=== PATIENT | female | born 1990 | race American Indian/Alaskan Native ===

== ENCOUNTER 2018-10-14 23:24 | Outpatient (CLI) | payer MEDICAID ==
[2018-10-15 00:27] VITALS: BP 111/59
[2018-10-15 01:31] LABS: Bilirubin,Urine NEG (Negative); Blood,Urine NEG (Negative); Color,Urine Yellow (Yellow); Mucus,Urine 1+ /HPF; Protein,Urine <15 mg/dL mg/dL (Negative); RBC,Urine < 1.0 /HPF (0.0-6.0)
== END 2018-10-15 03:23 | disposition home or self-care (01) ==
LOC: TRG 23:24
PROVIDERS: ATTEND Obstetrics & Gynecology
DX: O26.893 Other specified pregnancy related conditions, third trimester (principal); R10.9 Unspecified abdominal pain; M54.9 Dorsalgia, unspecified; Z3A.33 33 weeks gestation of pregnancy
CPT/HCPCS: 59025; 81001

== ENCOUNTER 2018-12-04 03:42 | Inpatient (IN) | payer MEDICAID ==
[2018-12-04] MEDS ORDERED: ZOFRAN IV PRN ×2 (04:18→09:00)
[2018-12-04] MEDS ORDERED: SUBLIMAZE IV PRN (04:18)
[2018-12-04] MEDS ORDERED: MINERAL OIL PO PRN (04:18)
[2018-12-04] MEDS ORDERED: AMPICILLIN/NS 2 GM/100 ML 2 GM/100 ML BAG IV ONE (04:18)
[2018-12-04] MEDS ORDERED: BRETHINE IVP PRN (04:18)
[2018-12-04] MEDS ORDERED: BRETHINE SUB-Q PRN (04:18)
[2018-12-04] MEDS ORDERED: XYLOCAINE 2% INFILTRATI ONE (04:18)
[2018-12-04] MEDS ORDERED: PITOCin/NS 30 UNIT/500ML 30 UNITS/500 ML BAG IV SCH ×2 (05:00→07:00)
[2018-12-04] MEDS ORDERED: PITOCin/NS 20 UNIT/1000ML DRIP 20 UNITS/1,000 ML BAG IV SCH ×3 (05:00→11:00)
[2018-12-04] MEDS ORDERED: LACTATED RINGERS 1,000 ML IV SCH ×2 (05:00→09:00)
[2018-12-04 05:06] LABS: Hematocrit 33.8 % (30.3-42.9); Hemoglobin 11.5 gm/dl (10.1-14.3); Mean Corpuscular HGB Conc 34 % (30-34); Mean Corpuscular Volume 94 fl (79-97); Platelet Count 208 K/mm3 (140-440); Red Blood Count 3.61 M/mm3 (3.65-5.03); Red Cell Distribution Width 14.4 % (13.2-15.2)
--- NOTE | 2018-12-04 07:56 | Anesthesia Consultation ---
Anesthesia Consult and Med Hx - Airway Anesthetic Teeth Evaluation: Good ROM Head & Neck: Adequate Mental/Hyoid Distance: Adequate Mallampati Class: Class I Intubation Access Assessment: Good - Pulmonary Exam CTA: Yes - Cardiac Exam Cardiac Exam: RRR - Pre-Operative Health Status ASA Pre-Surgery Classification: ASA2 Proposed Anesthetic Plan: Epidural - Pulmonary Hx Smoking: No Hx Asthma: No Hx Respiratory Symptoms: No SOB: No COPD: No Home Oxygen Therapy: No Hx Pneumonia: No - Cardiovascular System Hx Hypertension: No Hx Heart Attack/AMI: No Hx Pacemaker: No Hx Internal Defibrillator: No - Central Nervous System Hx Seizures: Yes (on meds last took keppra on 12/03/18) Hx Psychiatric Problems: No - Endocrine Hx Renal Disease: No Hx End Stage Renal Disease: No Hx Liver Disease: No Hx Hypothyroidism: No Hx Hyperthyroidism: No - Hematic Hx Anemia: No Hx Sickle Cell Disease: No - Other Systems Hx Alcohol Use: No
--- NOTE | 2018-12-04 07:57 | Anesthesia Day of Surgery ---
Anesthesia Day of Surgery - Day of Surgery Patient Examined: Yes Patient H&P Reviewed: No Patient is NPO: Yes Beta Blockers: No Cardiac Clearance: No Pulmonary Clearance: No Edgardo's Test: N/A
[2018-12-04] MEDS ORDERED: XYLOCAINE 2%/ EPI 1:200,000 INFILTRATI ONE (08:01)
[2018-12-04] MEDS ORDERED: AMPICILLIN/NS 1 GM/50 ML 1 GM/50 ML BAG IV SCH (08:22)
[2018-12-04] MEDS ORDERED: NARCAN 2 MG/2 ML IV PRN (08:30)
[2018-12-04] MEDS ORDERED: SENSORCAINE/DEXTR 0.75-8.25% INFILTRATI ONE (08:48)
[2018-12-04] MEDS ORDERED: ASTRAMORPH PF 10MG/10ML ONE (08:48)
[2018-12-04] MEDS ORDERED: BICITRA PO NR (09:00)
[2018-12-04] MEDS ORDERED: REGLAN IV NR (09:00)
[2018-12-04] MEDS ORDERED: fentaNYL-BUPIV 2 MCG/ML-0.125% 200 MCG/100 ML BAG EPIDURAL SCH (09:00)
[2018-12-04] MEDS ORDERED: SODIUM CHLORIDE FLUSH SYRINGE 10 ML IV PRN (09:00)
[2018-12-04] MEDS ORDERED: NARCAN 0.4 MG/1 ML IV PRN ×2 (09:00→10:25)
[2018-12-04] MEDS ORDERED: PHENERGAN PO PRN (09:00)
[2018-12-04] MEDS ORDERED: ANCEF/STERILE WATER 2 GM/20 ML 2 GM/20 ML SYRINGE IV NR (09:00)
[2018-12-04] MEDS ORDERED: PEPCID IV NR (09:00)
[2018-12-04] MEDS ORDERED: PHENERGAN PR PRN (09:00)
[2018-12-04] MEDS ORDERED: NACL 0.9% IR ONE (09:20)
[2018-12-04] MEDS ORDERED: WATER FOR IRRIG STERILE IR ONE (09:20)
[2018-12-04] MEDS ORDERED: KETALAR ONE (09:30)
[2018-12-04] MEDS ORDERED: DILAUDID ONE (09:40)
[2018-12-04] MEDS ORDERED: METHERGINE IM ONE (09:41)
[2018-12-04] MEDS ORDERED: VERSED ONE (10:07)
[2018-12-04] MEDS ORDERED: TORADOL ONE (10:09)
--- NOTE | 2018-12-04 10:21 | History and Physical Report ---
History of Present Illness Date of examination: 12/04/18 Date of admission: 12/04/18 04:26 Chief complaint: contractions History of present illness: this is a 28- yo EDC 11/24/18 here for contractions. She stated that she has been having contractions all night. She is a patient of [place] with limited care starting at 15 weeks. 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 She reports outbreak two days ago and has lesions per patient. She has a ahx of Seizure d/o with shunt. She has had IUGR 9%and been under care of [facility]. She also os GBS positive. 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 denies: smoking, alcohol abuse, prescription drug abuse - Obstetrical History Expected Date of Delivery: 11/24/18 Actual Gestation: 41 Week(s) 3 Day(s) : 5 Para: 4 Hx # Term Pregnancies: 4 Number of Pregnancies: 0 Spontaneous Abortions: 0 Induced : 0 Number of Living Children: 4 Medications and Allergies Allergies Allergy/AdvReac Type Severity Reaction Status Date / Time seafood Allergy Intermediate Swelling Uncoded 06/24/13 23:39 Home Medications Medication Instructions Recorded Confirmed Last Taken Type Valacyclovir HCl [Valtrex] 1,000 mg PO QDAY 12/04/18 12/04/18 12/03/18 History levETIRAcetam [Keppra] 500 mg PO BID 12/04/18 12/04/18 12/03/18 History Active Meds: Active Medications Citric Acid/Sodium Citrate (Bicitra) 30 ml PO ONCE NR Stop: 12/04/18 18:00 Last Admin: 12/04/18 08:52 Dose: 30 ml Documented by: Ephedrine Sulfate (Ephedrine Sulfate) 10 mg IV Q2M PRN PRN Reason: Hypotension Famotidine (Pepcid) 20 mg IV ONCE NR Stop: 12/04/18 18:00 Last Admin: 12/04/18 08:52 Dose: 20 mg Documented by: Fentanyl (Sublimaze) 100 mcg IV Q2H PRN PRN Reason: Labor Pain Last Admin: 12/04/18 05:48 Dose: 100 mcg Documented by: Ampicillin Sodium (Ampicillin/Ns 1 Gm/50 Ml) 1 gm in 50 mls @ 100 mls/hr IV Q4HR MAYRA; Protocol Last Admin: 12/04/18 08:26 Dose: 100 mls/hr Documented by: Lactated Ringer's (Lactated Ringers) 1,000 mls @ 125 mls/hr IV DIRECT MAYRA Last Admin: 12/04/18 05:45 Dose: 125 mls/hr Documented by: Oxytocin/Sodium Chloride (Pitocin/Ns 30 Unit/500ml) 30 units in 500 mls @ 4 mls/hr IV TITR MAYRA; Protocol Last Admin: 12/04/18 06:52 Dose: 4 milliunits/min, 4 mls/hr Documented by: Fentanyl/Bupivacaine/Sodium Chlor (Fentanyl-Bupiv 2 Mcg/Ml-0.125%) 200 mcg in 100 mls @ 12 mls/hr EPIDURAL TITR MAYRA; Protocol Cefazolin Sodium (Ancef/Sterile Water 2 Gm/20 Ml) 2 gm in 20 mls @ 80 mls/hr IV PREOP NR; Protocol Stop: 12/04/18 18:00 Lactated Ringer's (Lactated Ringers) 1,000 mls @ 2,250 mls/hr IV PREOP MAYRA Stop: 12/05/18 09:27 Oxytocin/Sodium Chloride (Pitocin/Ns 20 Unit/1000ml Drip) 20 units in 1,000 mls @ 0 mls/hr IV TITR MAYRA Metoclopramide HCl (Reglan) 10 mg IV ONCE NR Stop: 12/04/18 18:00 Last Admin: 12/04/18 08:59 Dose: 10 mg Documented by: Mineral Oil (Mineral Oil) 30 ml PO QHS PRN PRN Reason: Constipation Naloxone HCl (Narcan 2 Mg/2 Ml) 0.2 mg IV Q5M PRN PRN Reason: Respiratory sedation Naloxone HCl (Narcan 0.4 Mg/1 Ml) 0.2 mg IV Q2MIN PRN PRN Reason: Res Rate </= 8 or 02 SAT < 92% Ondansetron HCl (Zofran) 4 mg IV Q8H PRN PRN Reason: Nausea And Vomiting Promethazine HCl (Phenergan) 25 mg PO Q6H PRN PRN Reason: Nausea And Vomiting Promethazine HCl (Phenergan) 25 mg CA Q6H PRN PRN Reason: Nausea And Vomiting Sodium Chloride (Sodium Chloride Flush Syringe 10 Ml) 10 ml IV PRN PRN PRN Reason: flush Terbutaline Sulfate (Brethine) 0.25 mg SUB-Q ONCE PRN PRN Reason: Hyperstimulation/Hypertonicity Terbutaline Sulfate (Brethine) 0.25 mg IVP ONCE PRN PRN Reason: Hyperstimulation/Hypertonicity Review of Systems All systems: negative - Vital Signs Vital signs: Vital Signs Pulse BP 87 103/61 12/04/18 03:57 12/04/18 03:57 Temp Pulse Resp BP Pulse Ox 98.8 F 99 H 18 126/59 100 12/04/18 04:20 12/04/18 08:35 12/04/18 04:20 12/04/18 08:10 12/04/18 08:35 - Physical Exam Breasts: Positive: normal Cardiovascular: Regular rate, Normal S1 Lungs: Positive: Clear to auscultation, Normal air movement Abdomen: Positive: normal appearance, soft, normal bowel sounds. Negative: distention, tenderness, guarding Genitourinary (Female): Positive: normal external genitalia, perineal/vulvar lesions Vulva: both: normal Vagina: Positive: normal moisture Uterus: Positive: normal size, normal contour Deep Tendon Reflex Grade: Normal +2 - Obstetrical FHR: category 1 Cervical Dilatation: 4 Cervical Effacement Percentage: 60 station: -2 Uterine Contraction Pattern: Regular Uterine Tone Measurement Phase: Contraction Uterine Contraction Intensity: Mild Results Result Diagrams: 12/04/18 04:30 Abnormal lab results 12/04/18 Range/Units 04:30 RBC 3.61 L (3.65-5.03) M/mm3 All other labs normal. Assessment and Plan A/P Active labor GBS + HSV outbreak Desires permanant sterilization will proceed with primary csec and BTL
[2018-12-04] MEDS ORDERED: TYLENOL PO PRN (10:25)
[2018-12-04] MEDS ORDERED: MILK OF MAGNESIA PO PRN (10:25)
[2018-12-04] MEDS ORDERED: MORPHINE IV PRN ×2 (10:25)
[2018-12-04] MEDS ORDERED: TUCKS PAD TP PRN (10:25)
[2018-12-04] MEDS ORDERED: MYLICON PO PRN (10:25)
[2018-12-04] MEDS ORDERED: LANSINOH TP PRN (10:25)
--- NOTE | 2018-12-04 10:31 | Procedure Note ---
OB Delivery Note - Delivery Date of Delivery: 12/04/18 Surgeon: MARGIE BO Estimated blood loss: 500cc - Section Preop diagnosis: other (herpetic outbreak ) Postop diagnosis: same section procedure: section, primary low transverse Disposition: PACU Complications: none Narrative: see op note - Infant A at 1 minute: 8 at 5 minutes: 8 Infant Gender: Male
--- NOTE | 2018-12-04 10:44 | Operative Report ---
Operative Report Operative Report: PREOPERATIVE DIAGNOSES: Term , active herpetic outbreak , active labor , desires permanent sterilization POSTOPERATIVE DIAGNOSES: Same SURGEON Dr. Jacqueline Rubin MD OPERATION: Primary section by low-transverse incision, LSO . ANESTHESIA: Epidural. ESTIMATED BLOOD LOSS: 500 mL. COMPLICATIONS: None. CONDITION: Stable. DRAINS: [place] catheter. INDICATIONS: The patient is a 28year-old, G5, para 4004, with an EDC of 11/24/18. The patient began having prodromal symptoms 2 to 3 days prior to presentation. She was seen on 10/15 which is out last visit. Patient is non compliant . PROCEDURE: The patient was taken to the operating room whereshe had a spinal anesthesia was reinforced. She was prepped and draped in the usual fashion for the procedure. After adequate epidural level was confirmed, the scalp was utilized to make a transverse incision in the patient's lower abdominal wall. This incision was carried down to the level of the fascia, which was also transversely incised. After adequate hemostasis, the fascia was bluntly and sharply up from the underlying rectus muscle. The rectus muscle was in midline exposing the peritoneum. The peritoneum was carefully grasped and elevated with hemostats. It was entered in an up and down fashion with Metzenbaum scissors. The bladder blade was placed in the lower pole of the incision to protect the bladder. The uterus was palpated and inspected. A thin lower uterine segment was noted. The vertex presentation was confirmed. The scalp was then utilized to make a transverse or Land incision in the lower uterine wall. Clear fluid was noted upon entering into the amniotic space. At 0932, a term viable Male was delivered up through the incision. The placenta was manually extracted from the endometrial cavity. A ring clamp and two Allis clamps were placed around the margin of the uterine incision for hemostasis. The uterus was delivered up into the operative field. The endometrial cavity was swiped clean with a moist laparotomy pad. The uterine incision was then closed in a two-layered fashion with 0 Vicryl suture, the first layer interlocking and the second layer imbricating. Two additional stitches of 3-0 Vicryl suture were utilized for hemostasis. The uterine incision was noted to be hemostatic upon closure. The uterus was rotated forward, normal tubes and ovaries were noted on both sides.A small white cord observed but not manipulated ( shunt) The left tube was identified and followed from fimbrae to midportion of tube modified nicholas performed with catgut. The portion of tube sent to pthology. The right side observed and noted to be densely scarred together unable to differentiate the tube from surrounding structure. The right side was abandoned and not performed . The uterus was then returned to its normal position of the abdominal cavity. Surgicell appled for great hemostasis. The sponge and instrument count was performed for the first time at this point and found to be correct. The pelvis and anterior uterine space was then irrigated with saline solution. It was suctioned dry. A final check of the uterine incision confirmed hemostasis. The rectus muscle was stabilized across the midline with two simple stitches of 0 Vicryl suture. The subcutaneous tissue was then exposed, and the fascia closed with two running lengths of 0 Vicryl suture, beginning in lateral margins and overlapping the midline. The subcutaneous tissue was then irrigated and inspected. No active bleeding was noted. The skin was then approximated with Noah needle. The incision was cleansed and sterilely dressed. The patient was transferred to the recovery room in stable condition. The estimated blood loss through the procedure was 500 mL. The sponge and instrument counts were performed two more times during closure and found to be correct each time.
[2018-12-04] MEDS ORDERED: SODIUM CHLORIDE FLUSH SYRINGE 10 ML IV NR (11:00)
[2018-12-04] MEDS ORDERED: D5LR 1,000 ML IV SCH (11:00)
[2018-12-04 16:56] LABS: Basophils % (Auto) 0.2 % (0.0-1.8); Eosinophils % (Auto) 0.1 % (0.0-4.3); Hematocrit 24.5 % (30.3-42.9); Hemoglobin 8.2 gm/dl (10.1-14.3); Lymphocytes # (Auto) 1.9 K/mm3 (1.2-5.4); Lymphocytes % (Auto) 13.9 % (13.4-35.0); Mean Corpuscular HGB Conc 34 % (30-34); Mean Corpuscular Volume 95 fl (79-97); Monocytes # (Auto) 0.8 K/mm3 (0.0-0.8); Monocytes % (Auto) 5.6 % (0.0-7.3); Platelet Count 204 K/mm3 (140-440); Red Blood Count 2.58 M/mm3 (3.65-5.03); Red Cell Distribution Width 14.5 % (13.2-15.2)
[2018-12-04] MEDS: KEPPRA PO SCH (22:51)
[2018-12-04] MEDS: NORCO 5/325 PO PRN (22:52)
[2018-12-04 23:06] LABS: Hemoglobin 6.7 gm/dl (10.1-14.3)
[2018-12-04 23:14] LABS: Hematocrit 19.6 % (30.3-42.9)
[2018-12-04] MEDS ORDERED: NACL 0.9% 500 ML 500 ML IV ONE (23:48)
[2018-12-05] MEDS: IBUPROFEN PO PRN ×3 (01:46→18:11)
[2018-12-05] MEDS ORDERED: NACL 0.9% 500 ML 500 ML IV ONE (03:00)
[2018-12-05] MEDS ORDERED: BENADRYL PO ONE (03:45)
[2018-12-05] MEDS ORDERED: BOOSTRIX IM ONE (06:00)
[2018-12-05] MEDS ORDERED: M-M-R II VACCINE SUB-Q ONE (06:00)
[2018-12-05] MEDS: FEOSOL PO SCH (10:10)
[2018-12-05] MEDS: PRENATAL VITAMIN PO SCH (10:10)
[2018-12-05] MEDS: KEPPRA PO SCH ×2 (10:11→22:16)
--- NOTE | 2018-12-05 11:44 | Progress Note ---
Assessment and Plan - Patient Problems (1) delivery delivered Current Visit: Yes Status: Acute Plan to address problem: routine postop care Subjective - Subjective Date of service: 12/05/18 Interval history: Patient without any significant complaints. Denies flatus. Tolerated clears Patient reports: appetite normal, voiding normally, pain well controlled, no flatus [place]: doing well Objective - Vital Signs Latest vital signs: Vital Signs Temp Pulse Resp BP BP Pulse Ox 12/05/18 07:42 98.5 F 89 18 96/46 97 12/05/18 06:35 98.3 F 89 16 95/51 12/05/18 05:35 98.5 F 90 87/38 12/05/18 05:17 98.5 F 90 16 94/43 100 12/05/18 04:25 98.6 F 93 H 16 94/43 12/05/18 04:10 98.6 F 95 H 16 93/43 93/43 99 12/05/18 01:25 98.5 F 95 H 18 104/52 99 12/05/18 01:20 98.5 F 95 H 18 104/52 99 12/04/18 21:40 99.1 F 101 H 18 97/48 98 12/04/18 16:58 98.0 F 102 H 20 113/66 99 12/04/18 11:50 99.1 F 91 H 18 91/36 Intake and Output 12/04/18 12/05/18 12/05/18 22:59 06:59 14:59 Intake Total 200 Output Total 200 650 Balance -200 200 -650 Intake: Blood Product 200 Cpda-1 Leuko Reduced 200 Unit [id number] Leukoreduced Red Blood 0 Cells Unit [id number] Output: Urine 200 650 Indwelling Catheter 200 Void 650 Other: Total, Output Amount 200 650 # Voids Void 1 - Exam Uterus: Present: normal, firm Incision: Present: dressed - Labs Labs: Abnormal lab results 12/04/18 12/04/18 12/04/18 Range/Units 04:30 16:06 22:48 WBC 13.8 H (4.5-11.0) K/mm3 RBC 2.58 L (3.65-5.03) M/mm3 Hgb 8.2 L D 6.7 L (10.1-14.3) gm/dl Hct 24.5 L D 19.6 L* (30.3-42.9) % Seg Neutrophils % 80.2 H (40.0-70.0) % Seg Neutrophils # 11.1 H (1.8-7.7) K/mm3 Crossmatch See Detail
[2018-12-05 13:46] LABS: Hematocrit 25.7 % (30.3-42.9); Hemoglobin 8.6 gm/dl (10.1-14.3)
[2018-12-06] MEDS: NORCO 5/325 PO PRN (00:09)
[2018-12-06] MEDS: IBUPROFEN PO PRN ×2 (05:57→13:37)
[2018-12-06] MEDS ORDERED: BOOSTRIX IM ONE (06:00)
--- NOTE | 2018-12-06 07:35 | Progress Note ---
Assessment and Plan - Patient Problems (1) delivery delivered Current Visit: Yes Status: Acute Plan to address problem: discharge home tomorrow routine postop Subjective - Subjective Date of service: 12/06/18 Interval history: Patient does not want to be discharged today. She is tolerating her diet. Pain is better controlled Patient reports: appetite normal, voiding normally, dizzy ambulation [place]: doing well Objective - Vital Signs Latest vital signs: Vital Signs Temp Pulse Resp BP Pulse Ox 12/06/18 01:24 98.3 F 111 H 18 108/60 98 12/05/18 15:46 98.4 F 94 H 18 103/46 99 12/05/18 12:24 99.2 F 114 H 20 105/56 98 12/05/18 07:42 98.5 F 89 18 96/46 97 Intake and Output 12/05/18 12/06/18 12/06/18 22:59 06:59 14:59 Intake Total 480 Output Total 900 Balance -420 Intake: Oral 480 Output: Urine 900 Void 900 Other: Total, Intake Amount 480 Total, Output Amount 900 - Exam Abdomen: Present: normal appearance Incision: Present: normal - Labs Labs: Abnormal lab results 12/05/18 Range/Units 13:25 Hgb 8.6 L (10.1-14.3) gm/dl Hct 25.7 L D (30.3-42.9) %
--- NOTE | 2018-12-06 07:38 | Discharge Summary ---
Providers - Providers Date of Admission: 12/04/18 04:26 Date of discharge: 12/07/18 Attending physician: MARGIE BO MD Primary care physician: MARGIE BO MD Hospitalization Reason for admission: active labor, other (herpetic outbreak) Delivery: Procedure: section, primary low transverse Incision: normal Discharge diagnosis: IUP at term delivered Hospital course: Patient admitted in labor with findings of a herpes outbreak. Patient taken for primary . See op report. uncomplicated Condition at discharge: Good Disposition: DC-01 TO HOME OR SELFCARE - Discharge Diagnoses (1) delivery delivered Status: Acute Plan - Discharge Medications Prescriptions: Ibuprofen [Motrin] 600 mg PO Q8H PRN #30 tablet PRN Reason: Pain oxyCODONE /ACETAMINOPHEN [Percocet 5/325] 1 tab PO Q6HR PRN #30 tablet PRN Reason: Pain - Provider Discharge Summary Activity: no sex for 6 weeks, no heavy lifting 4 weeks, no strenuous exercise Diet: routine Instructions: routine Additional instructions: [] Smoking cessation referral if applicable(refer to patient education folder for contact #) [] Refer to [facility] Booklet Call your doctor immediately for: * Fever > 100.5 * Heavy vaginal bleeding ( >1 pad per hour) * Severe persistent headache * Shortness of breath * Reddened, hot, painful area to leg or breast * Drainage or odor from incision. * Keep incision clean and dry at all times and follow doctor's instructions regarding bathing/showering schedule followup in 2 weeks - Follow up plan
[2018-12-06] MEDS: FEOSOL PO SCH (09:41)
[2018-12-06] MEDS: KEPPRA PO SCH (09:42)
[2018-12-06] MEDS: PRENATAL VITAMIN PO SCH (09:42)
[2018-12-06] MEDS: PERCOCET 5/325 PO PRN (13:37)
[2018-12-06] MEDS ORDERED: BENADRYL PO ONE (23:50)
[2018-12-07] MEDS: PERCOCET 5/325 PO PRN (01:22)
[2018-12-07] MEDS: IBUPROFEN PO PRN ×3 (01:23→18:48)
[2018-12-07] MEDS: KEPPRA PO SCH ×3 (01:23→22:17)
[2018-12-07] MEDS: FEOSOL PO SCH (09:51)
[2018-12-07] MEDS: PRENATAL VITAMIN PO SCH (09:52)
[2018-12-07] MEDS ORDERED: AFLURIA QUAD 2018-2019 SYRINGE IM ONE (19:42)
[2018-12-08 00:38] VITALS: BP 118/65
== END 2018-12-07 23:55 | disposition home or self-care (01) | DRG 765 ==
LOC: TRG 03:42 → LD 04:26 → OB 14:31
PROVIDERS: ADMIT Obstetrics & Gynecology; ATTEND Obstetrics & Gynecology
PROC: 10D00Z1 Extraction of Products of Conception, Low, Open Approach (ICD-10-PCS; principal; 2018-12-04)
PROC: 0UB60ZZ Excision of Left Fallopian Tube, Open Approach (ICD-10-PCS; 2018-12-04)
PROC: 3E0234Z Introduction of Serum, Toxoid and Vaccine into Muscle, Percutaneous Approach (ICD-10-PCS; 2018-12-05)
PROC: 30233N1 Transfusion of Nonautologous Red Blood Cells into Peripheral Vein, Percutaneous Approach (ICD-10-PCS; 2018-12-05)
DX: O98.52 Other viral diseases complicating childbirth (principal); D62 Acute posthemorrhagic anemia; B00.9 Herpesviral infection, unspecified; D63.1 Anemia in chronic kidney disease; O99.824 Streptococcus B carrier state complicating childbirth; O99.02 Anemia complicating childbirth; O99.214 Obesity complicating childbirth; E66.9 Obesity, unspecified; Z91.013 Allergy to seafood; Z3A.41 41 weeks gestation of pregnancy; Z37.0 Single live birth; Z79.899 Other long term (current) drug therapy; Z23 Encounter for immunization
CPT/HCPCS: 36415; 85014; 85018; 85025; 85027; 86592; 86850; 86900; 86901; 86920; 88302; 90471; 90686; 90715; G0378; C1765; G0008; J0290; J0690; J1170; J1885; J2210; J2250; J2274; J2405; J2590; J2765; J3010; J7040; J7120; J7121; P9016

== ENCOUNTER 2020-07-01 02:03 | Emergency (ER) | payer MEDICAID ==
[2020-07-01] MEDS ORDERED: SODIUM CHLORIDE 0.9% 1000 ML 1,000 ML ONE (02:22)
[2020-07-01] MEDS ORDERED: methylPREDNISolone Sod Succinate 125 MG/2 ML INJ IV ONE (02:24)
[2020-07-01] MEDS ORDERED: EPINEPHrine/PF 1 MG/1 ML INJ SUB-Q ONE (02:24)
[2020-07-01] MEDS ORDERED: FAMOTIDINE 20 MG/2 ML INJ IV ONE (02:25)
[2020-07-01] MEDS ORDERED: SODIUM CHLORIDE 0.9% 1000 ML 1,000 ML IV ONE ×2 (02:30→04:32)
--- NOTE | 2020-07-01 02:31 | Emergency Department Report ---
HPI - General Chief Complaint: Allergic Reaction Time Seen by Provider: 07/01/20 02:19 - HPI HPI: This is a 30-year-old female presents to the emergency department via EMS with complaints of an allergic reaction. The patient has a known allergy to shrimp. She was eating crab legs and thinks that some shrimp or juice from shrimp got onto her food. She presents with diffuse hives and some swelling of the lips. She denies any difficulty swallowing, shortness of breath, chest pain, fever. She has a past medical history of seizures for which she takes Keppra. She received some Benadryl in route with EMS. ED Past Medical Hx - Past Medical History Previous Medical History?: Yes Hx Hypertension: No Hx CVA: No Hx Heart Attack/AMI: No Hx Congestive Heart Failure: No Hx Diabetes: No Hx Deep Vein Thrombosis: No Hx Pulmonary Embolism: No Hx GERD: No Hx Liver Disease: No Hx Renal Disease: No Hx Sickle Cell Disease: No Hx Arthritis: No Hx Headaches / Migraines: No Hx Seizures: Yes (on meds last took keppra on 12/03/18) Hx Kidney Stones: No Hx Psychiatric Treatment: Yes (Bipolar) Hx Asthma: No Hx COPD: No Hx Tuberculosis: No Hx Dementia: No Hx HIV: No - Surgical History Past Surgical History?: Yes Hx Coronary Stent: No Hx Open Heart Surgery: No Hx Pacemaker: No Hx Internal Defibrillator: No Hx Cholecystectomy: No Hx Appendectomy: No Hx Breast Surgery: No Additional Surgical History: X 2 "seizure surgery" (1 at and the 2nd @ 12) - Social History Smoking Status: Never Smoker - Medications Home Medications: Home Medications Medication Instructions Recorded Confirmed Last Taken Type Ibuprofen [Motrin] 600 mg PO Q8H PRN #30 tablet 12/04/18 Unknown Rx Valacyclovir HCl [Valtrex] 1,000 mg PO QDAY 12/04/18 12/04/18 12/03/18 History levETIRAcetam [Keppra] 500 mg PO BID 12/04/18 12/04/18 12/03/18 History oxyCODONE /ACETAMINOPHEN [Percocet 1 tab PO Q6HR PRN #30 tablet 12/04/18 Unknown Rx 5/325] EPINEPHrine [Epipen] 0.3 mg IJ ONCE PRN #1 auto.injct 07/01/20 Unknown Rx Famotidine [Pepcid] 20 mg PO BID #6 tablet 07/01/20 Unknown Rx diphenhydrAMINE [Benadryl CAP] 25 mg PO Q8HR PRN #10 capsule 07/01/20 Unknown Rx predniSONE [Deltasone] 20 mg PO BID #6 tab 07/01/20 Unknown Rx ED Review of Systems ROS: Stated complaint: ALLERGIC REACTION Other details as noted in HPI Comment: All other systems reviewed and negative Constitutional: denies: chills, fever Eyes: denies: eye pain, vision change ENT: other (lip swelling). denies: ear pain, throat pain Respiratory: denies: cough, shortness of breath Cardiovascular: denies: chest pain, palpitations Gastrointestinal: denies: abdominal pain, vomiting Genitourinary: denies: dysuria, discharge Musculoskeletal: denies: back pain, arthralgia Skin: rash, pruritus Neurological: denies: headache, weakness Physical Exam - Physical Exam Vital Signs: Vital Signs 07/01/20 02:15 Temperature 97.7 F Pulse Rate 97 H Respiratory 18 Rate Blood Pressure 96/50 Blood Pressure 96/50 [Right] O2 Sat by Pulse 95 Oximetry Physical Exam: GENERAL: The patient is well-developed well-nourished. HENT: Normocephalic. Atraumatic. Patient has moist mucous membranes. Oropharynx is clear. Mild lip swelling. No drooling or trismus. EYES: Extraocular motions are intact. NECK: Supple. Trachea is midline. CHEST/LUNGS: Clear to auscultation. There is no respiratory distress noted. HEART/CARDIOVASCULAR: Regular. There is no tachycardia. ABDOMEN: Abdomen is soft, nontender. Patient has normal bowel sounds. SKIN: There are multiple areas of urticarial lesions to the bilateral upper extremities, abdomen, chest, neck and back. NEURO: The patient is awake, alert, and oriented. The patient is cooperative. Normal speech. MUSCULOSKELETAL: There is no tenderness or deformity. ED Course Vital Signs 07/01/20 02:15 Temperature 97.7 F Pulse Rate 97 H Respiratory 18 Rate Blood Pressure 96/50 Blood Pressure 96/50 [Right] O2 Sat by Pulse 95 Oximetry ED Medical Decision Making - Medical Decision Making This patient presents to the emergency department with allergic reaction to some shrimp or shellfish that she had this evening. Her main complaint is urticarial lesions/rash but she also says that she has some mild lip swelling. Oropharynx is clear. No swelling of the tongue or throat. No shortness of breath and the patient does not appear in any respiratory or acute distress. She was given Benadryl in route with EMS. I gave the patient Solu-Medrol, Pepcid and an EpiPen dose of epinephrine. The patient also received 2 L of IV fluid secondary to some borderline hypotension. She was reevaluated multiple times over multiple hours and is feeling improved. The urticaria has decreased, as has the lip swelling. The patient's blood pressure prior to discharge is a MAP of 73. She will be discharged home to follow-up with her primary care physician. She has been given prescriptions for prednisone, Pepcid, Benadryl. She was also given a prescription for an EpiPen to use in the future with any angioedema or anaphylaxis reactions. She will return to the emergency department with any worsening of her symptoms or with any acute distress. Critical Care Time: Yes Critical care time in (mins) excluding proc time.: 35 Critical care attestation.: If time is entered above; I have spent that time in minutes in the direct care of this critically ill patient, excluding procedure time. Critical care time was spent on this patient in doing her initial evaluation, multiple re- evaluations, treatment of the allergic reaction and angioedema with steroids, antihistamines and epinephrine, IV fluid resuscitation, multiple discussions with the patient. Critical Care Time: 35 minutes ED Disposition Clinical Impression: Urticaria Allergic reaction Qualifiers: Encounter type: initial encounter Qualified Code(s): T78.40XA - Allergy, unspecified, initial encounter Angioedema of lips Qualifiers: Encounter type: initial encounter Qualified Code(s): T78.3XXA - Angioneurotic edema, initial encounter Disposition: DC-01 TO HOME OR SELFCARE Is pt being admited?: No Condition: Stable Instructions: Food Allergy (ED), Angioedema (ED) Additional Instructions: Please follow-up with a primary care physician in the next few days. Return to the emergency department with any worsening of your symptoms or with any acute distress. I am writing you multiple prescriptions including steroids, Pepcid and Benadryl. I am also writing for an EpiPen. You do not need to use the EpiPen at this time, but you should have it available if you have any future allergic reactions that involve swelling of the lips, tongue, throat, shortness of breath, chest pain, or any other symptoms of anaphylaxis. If you have to use the EpiPen, call 911 immediately afterwards to go to the closest emergency department. Prescriptions: diphenhydrAMINE [Benadryl CAP] 25 mg PO Q8HR PRN #10 capsule PRN Reason: Allergic Reaction predniSONE [Deltasone] 20 mg PO BID #6 tab EPINEPHrine [Epipen] 0.3 mg IJ ONCE PRN #1 auto.injct PRN Reason: Anaphylaxis Famotidine [Pepcid] 20 mg PO BID #6 tablet Referrals: PRIMARY CARE, [Primary Care Provider] - 2-3 Days Time of Disposition: 05:49
[2020-07-01 06:19] VITALS: BP 105/59
== END 2020-07-01 06:15 | disposition home or self-care (01) ==
LOC: ED 02:03
DX: T78.3XXA Angioneurotic edema, initial encounter (principal); T78.1XXA Other adverse food reactions, not elsewhere classified, initial encounter; Z91.013 Allergy to seafood; Z86.69 Personal history of other diseases of the nervous system and sense organs; Z98.890 Other specified postprocedural states; Z79.899 Other long term (current) drug therapy; X58.XXXA Exposure to other specified factors, initial encounter
CPT/HCPCS: 96361; 96372; 96374; 96375; 99283; J0171; J2930; J7030

== ENCOUNTER 2020-11-12 21:59 | Emergency (ER) | payer SELFPAY ==
[2020-11-13] VITALS: BP 113/54
[2020-11-13] MEDS ORDERED: predniSONE 20 MG TAB PO ONE (00:12)
[2020-11-13] MEDS ORDERED: ACETAMINOPEN W/CODEINE 120-12MG ORAL LIQD 5 ML PO ONE (00:12)
--- NOTE | 2020-11-13 00:13 | Emergency Department Report ---
ED ENT HPI - General Chief complaint: Sore Throat Stated complaint: SORE THROAT Time Seen by Provider: 11/13/20 00:08 Source: patient Mode of arrival: Stretcher Limitations: No Limitations - History of Present Illness Initial comments: Patient is a 30-year-old male who presents to ED complaining of throat pain 2 days. Patient describes pain as throbbing in nature, 8 out of 10 intensity, nonradiating, localized to his throat. Admits pain with swallowing and eating. Patient admits no appetite due to throat pain. Patient admits dry, nonproductive cough. Patient admits fever for the first 2 days but not at the moment. Patient denies nausea/vomiting/abdominal pain/shortness of breath/chest pain/headache. MD complaint: sore throat - Related Data Home Medications Medication Instructions Recorded Confirmed Last Taken Valacyclovir HCl [Valtrex] 1,000 mg PO QDAY 12/04/18 12/04/18 12/03/18 levETIRAcetam [Keppra] 500 mg PO BID 12/04/18 12/04/18 12/03/18 Previous Rx's Medication Instructions Recorded Last Taken Type Ibuprofen [Motrin] 600 mg PO Q8H PRN #30 tablet 12/04/18 Unknown Rx oxyCODONE /ACETAMINOPHEN [Percocet 1 tab PO Q6HR PRN #30 tablet 12/04/18 Unknown Rx 5/325] EPINEPHrine [Epipen] 0.3 mg IJ ONCE PRN #1 auto.injct 07/01/20 Unknown Rx Famotidine [Pepcid] 20 mg PO BID #6 tablet 07/01/20 Unknown Rx diphenhydrAMINE [Benadryl CAP] 25 mg PO Q8HR PRN #10 capsule 07/01/20 Unknown Rx predniSONE [Deltasone] 20 mg PO BID #6 tab 07/01/20 Unknown Rx Acetamin/Codeine 120-12Mg/5 ml 5 ml PO TID PRN 4 Days #60 ml 11/13/20 Unknown Rx [Tylenol/Codeine] Amoxicillin [Trimox CAP] 500 mg PO Q8H #21 capsule 11/13/20 Unknown Rx Nystas/Diphen/Xyl Visc/Mylanta 15 ml MM Q6H PRN #120 ml 11/13/20 Unknown Rx [Magic Mouthwash] predniSONE [Deltasone] 20 mg PO QDAY #5 tab 11/13/20 Unknown Rx Allergies Allergy/AdvReac Type Severity Reaction Status Date / Time seafood Allergy Intermediate Swelling Uncoded 06/24/13 23:39 ED Dental HPI - General Chief complaint: Sore Throat Stated complaint: SORE THROAT Time Seen by Provider: 11/13/20 00:08 Source: patient Mode of arrival: Stretcher Limitations: No Limitations - Related Data Home Medications Medication Instructions Recorded Confirmed Last Taken Valacyclovir HCl [Valtrex] 1,000 mg PO QDAY 12/04/18 12/04/18 12/03/18 levETIRAcetam [Keppra] 500 mg PO BID 12/04/18 12/04/18 12/03/18 Previous Rx's Medication Instructions Recorded Last Taken Type Ibuprofen [Motrin] 600 mg PO Q8H PRN #30 tablet 12/04/18 Unknown Rx oxyCODONE /ACETAMINOPHEN [Percocet 1 tab PO Q6HR PRN #30 tablet 12/04/18 Unknown Rx 5/325] EPINEPHrine [Epipen] 0.3 mg IJ ONCE PRN #1 auto.injct 07/01/20 Unknown Rx Famotidine [Pepcid] 20 mg PO BID #6 tablet 07/01/20 Unknown Rx diphenhydrAMINE [Benadryl CAP] 25 mg PO Q8HR PRN #10 capsule 07/01/20 Unknown Rx predniSONE [Deltasone] 20 mg PO BID #6 tab 07/01/20 Unknown Rx Acetamin/Codeine 120-12Mg/5 ml 5 ml PO TID PRN 4 Days #60 ml 11/13/20 Unknown Rx [Tylenol/Codeine] Amoxicillin [Trimox CAP] 500 mg PO Q8H #21 capsule 11/13/20 Unknown Rx Nystas/Diphen/Xyl Visc/Mylanta 15 ml MM Q6H PRN #120 ml 11/13/20 Unknown Rx [Magic Mouthwash] predniSONE [Deltasone] 20 mg PO QDAY #5 tab 11/13/20 Unknown Rx Allergies Allergy/AdvReac Type Severity Reaction Status Date / Time seafood Allergy Intermediate Swelling Uncoded 06/24/13 23:39 ED Review of Systems ROS: Stated complaint: SORE THROAT Other details as noted in HPI Constitutional: denies: chills, fever Eyes: denies: eye pain, eye discharge, vision change ENT: throat pain. denies: ear pain Respiratory: denies: cough, shortness of breath, wheezing Cardiovascular: denies: chest pain, palpitations Endocrine: no symptoms reported Gastrointestinal: denies: abdominal pain, nausea, diarrhea Genitourinary: denies: urgency, dysuria, discharge Musculoskeletal: denies: back pain, joint swelling, arthralgia Skin: denies: rash, lesions Neurological: denies: headache, weakness, paresthesias Psychiatric: denies: anxiety, depression Hematological/Lymphatic: denies: easy bleeding, easy bruising ED Past Medical Hx - Past Medical History Previous Medical History?: Yes Hx Hypertension: No Hx CVA: No Hx Heart Attack/AMI: No Hx Congestive Heart Failure: No Hx Diabetes: No Hx Deep Vein Thrombosis: No Hx Pulmonary Embolism: No Hx GERD: No Hx Liver Disease: No Hx Renal Disease: No Hx Sickle Cell Disease: No Hx Arthritis: No Hx Headaches / Migraines: No Hx Seizures: Yes (on meds last took keppra on 12/03/18) Hx Kidney Stones: No Hx Psychiatric Treatment: Yes (Bipolar) Hx Asthma: No Hx COPD: No Hx Tuberculosis: No Hx Dementia: No Hx HIV: No - Surgical History Past Surgical History?: Yes Hx Coronary Stent: No Hx Open Heart Surgery: No Hx Pacemaker: No Hx Internal Defibrillator: No Hx Cholecystectomy: No Hx Appendectomy: No Hx Breast Surgery: No Additional Surgical History: X 2 "seizure surgery" (1 at and the 2nd @ 12) - Social History Smoking Status: Never Smoker Substance Use Type: None - Medications Home Medications: Home Medications Medication Instructions Recorded Confirmed Last Taken Type Ibuprofen [Motrin] 600 mg PO Q8H PRN #30 tablet 12/04/18 Unknown Rx Valacyclovir HCl [Valtrex] 1,000 mg PO QDAY 12/04/18 12/04/18 12/03/18 History levETIRAcetam [Keppra] 500 mg PO BID 12/04/18 12/04/18 12/03/18 History oxyCODONE /ACETAMINOPHEN [Percocet 1 tab PO Q6HR PRN #30 tablet 12/04/18 Unknown Rx 5/325] EPINEPHrine [Epipen] 0.3 mg IJ ONCE PRN #1 auto.injct 07/01/20 Unknown Rx Famotidine [Pepcid] 20 mg PO BID #6 tablet 07/01/20 Unknown Rx diphenhydrAMINE [Benadryl CAP] 25 mg PO Q8HR PRN #10 capsule 07/01/20 Unknown Rx predniSONE [Deltasone] 20 mg PO BID #6 tab 07/01/20 Unknown Rx Acetamin/Codeine 120-12Mg/5 ml 5 ml PO TID PRN 4 Days #60 ml 11/13/20 Unknown Rx [Tylenol/Codeine] Amoxicillin [Trimox CAP] 500 mg PO Q8H #21 capsule 11/13/20 Unknown Rx Nystas/Diphen/Xyl Visc/Mylanta 15 ml MM Q6H PRN #120 ml 11/13/20 Unknown Rx [Magic Mouthwash] predniSONE [Deltasone] 20 mg PO QDAY #5 tab 11/13/20 Unknown Rx ED Physical Exam - General Limitations: No Limitations General appearance: alert, in no apparent distress - Head Head exam: Present: atraumatic, normocephalic - Eye Eye exam: Present: normal appearance, PERRL Pupils: Present: normal accommodation - ENT ENT exam: Present: mucous membranes moist - Neck Neck exam: Present: normal inspection - Respiratory Respiratory exam: Present: normal lung sounds bilaterally. Absent: respiratory distress - Cardiovascular Cardiovascular Exam: Present: regular rate, normal rhythm. Absent: systolic murmur, diastolic murmur, rubs, gallop - GI/Abdominal GI/Abdominal exam: Present: soft, normal bowel sounds - Extremities Exam Extremities exam: Present: normal inspection - Back Exam Back exam: Present: normal inspection - Neurological Exam Neurological exam: Present: alert, oriented X3 - Psychiatric Psychiatric exam: Present: normal affect, normal mood - Skin Skin exam: Present: warm, dry, intact, normal color. Absent: rash ED Course Vital Signs 11/12/20 23:58 Temperature 99.9 F H Pulse Rate 96 H Respiratory 18 Rate Blood Pressure 113/54 O2 Sat by Pulse 100 Oximetry ED Medical Decision Making - Medical Decision Making 30-year-old female presents with acute tonsillitis ED course: clinical diagnosis of acute bacterial Patient received 1 dose of Tylenol, 60 mg of prednisone. No Fever throughout ED stay Vital signs stable patient is in no acute or respiratory distress. Discussed findings with patient about the positive strep. Discussed treatment in ED with patient Discussed the patient that strep throat is contagious and to limit sharing spoons and such. Discussed with patient follow-up with primary care physician. Patient verbally states she understands and will comply to follow-up. Critical care attestation.: If time is entered above; I have spent that time in minutes in the direct care of this critically ill patient, excluding procedure time. ED Disposition Clinical Impression: Acute bacterial tonsillitis, Pharyngitis Disposition: TO HOME OR SELFCARE Is pt being admited?: No Does the pt Need Aspirin: No Condition: Stable Instructions: Tonsillitis, [id number], Strep Throat, Adult, [id number], Pharyngitis, [id number] Additional Instructions: Make sure to follow up with the primary care physician as discussed. Take all your medications as you've been prescribed. If you have any worsening symptoms or develop new symptoms please return to ED immediately. Prescriptions: predniSONE [Deltasone] 20 mg PO QDAY #5 tab Nystas/Diphen/Xyl Visc/Mylanta [Magic Mouthwash] 15 ml MM Q6H PRN #120 ml PRN Reason: Sore Throat Amoxicillin [Trimox CAP] 500 mg PO Q8H #21 capsule Acetamin/Codeine 120-12Mg/5 ml [Tylenol/Codeine] 5 ml PO TID PRN 4 Days #60 ml PRN Reason: Pain Referrals: PRIMARY CARE,MD [Primary Care Provider] - 3-5 Days [facility] [Outside] - 3-5 Days [facility] [Outside] - 3-5 Days [facility] [Outside] - 3-5 Days Forms: Work/School Release Form(ED) Time of Disposition: 00:50
== END 2020-11-13 01:23 | disposition home or self-care (01) ==
LOC: ED 21:59
DX: J03.80 Acute tonsillitis due to other specified organisms (principal); B96.89 Other specified bacterial agents as the cause of diseases classified elsewhere; G40.909 Epilepsy, unspecified, not intractable, without status epilepticus; Z98.890 Other specified postprocedural states; Z79.899 Other long term (current) drug therapy; Z91.013 Allergy to seafood
CPT/HCPCS: 99283; J7512

== ENCOUNTER 2021-05-07 06:14 | Emergency (ER) | payer SELFPAY ==
[2021-05-07 06:33] VITALS: BP 105/46
--- NOTE | 2021-05-07 07:42 | Emergency Department Report ---
ED General Adult HPI - General Chief complaint: Urogenital-Female Stated complaint: HERPES OUT BREAK Time Seen by Provider: 05/07/21 07:40 Source: patient Mode of arrival: Ambulatory Limitations: No Limitations - History of Present Illness Initial comments: 31-year-old female presents for evaluation of vaginal pain gradual onset yesterday. Reports a burning sensation as well as burning with urination. Also admits to vaginal discharge. No fevers vomiting or abdominal pain. Symptoms severe nothing makes better or worse. States that she has had HSV before this feels somewhat similar. Severity scale (0 -10): 0 - Related Data Home Medications Medication Instructions Recorded Confirmed Last Taken Valacyclovir HCl [Valtrex] 1,000 mg PO QDAY 12/04/18 12/04/18 12/03/18 levETIRAcetam [Keppra] 500 mg PO BID 12/04/18 12/04/18 12/03/18 Previous Rx's Medication Instructions Recorded Last Taken Type Ibuprofen [Motrin] 600 mg PO Q8H PRN #30 tablet 12/04/18 Unknown Rx oxyCODONE /ACETAMINOPHEN [Percocet 1 tab PO Q6HR PRN #30 tablet 12/04/18 Unknown Rx 5/325] EPINEPHrine [Epipen] 0.3 mg IJ ONCE PRN #1 auto.injct 07/01/20 Unknown Rx Famotidine [Pepcid] 20 mg PO BID #6 tablet 07/01/20 Unknown Rx diphenhydrAMINE [Benadryl CAP] 25 mg PO Q8HR PRN #10 capsule 07/01/20 Unknown Rx predniSONE [Deltasone] 20 mg PO BID #6 tab 07/01/20 Unknown Rx Acetamin/Codeine 120-12Mg/5 ml 5 ml PO TID PRN 4 Days #60 ml 11/13/20 Unknown Rx [Tylenol/Codeine] Amoxicillin [Trimox CAP] 500 mg PO Q8H #21 capsule 11/13/20 Unknown Rx Nystas/Diphen/Xyl Visc/Mylanta 15 ml MM Q6H PRN #120 ml 11/13/20 Unknown Rx [Magic Mouthwash] predniSONE [Deltasone] 20 mg PO QDAY #5 tab 11/13/20 Unknown Rx DOXYCYCLINE Hyclate [Vibramycin 100 mg PO Q12HR #14 capsule 05/07/21 Unknown Rx CAP] metroNIDAZOLE [Flagyl] 2,000 mg PO ONCE #4 tab 05/07/21 Unknown Rx valACYclovir [Valtrex] 500 mg PO BID #6 tab 05/07/21 Unknown Rx Allergies Allergy/AdvReac Type Severity Reaction Status Date / Time shellfish derived Allergy Swelling Verified 05/07/21 08:29 seafood Allergy Intermediate Swelling Uncoded 05/07/21 08:28 ED Review of Systems ROS: Stated complaint: HERPES OUT BREAK Other details as noted in HPI Comment: All other systems reviewed and negative Genitourinary: as per HPI ED Past Medical Hx - Past Medical History Previous Medical History?: Yes Hx Hypertension: No Hx CVA: No Hx Heart Attack/AMI: No Hx Congestive Heart Failure: No Hx Diabetes: No Hx Deep Vein Thrombosis: No Hx Pulmonary Embolism: No Hx GERD: No Hx Liver Disease: No Hx Renal Disease: No Hx Sickle Cell Disease: No Hx Arthritis: No Hx Headaches / Migraines: No Hx Seizures: Yes (on meds last took keppra on 12/03/18) Hx Kidney Stones: No Hx Psychiatric Treatment: Yes (Bipolar) Hx Asthma: No Hx COPD: No Hx Tuberculosis: No Hx Dementia: No Hx HIV: No - Surgical History Past Surgical History?: Yes Hx Coronary Stent: No Hx Open Heart Surgery: No Hx Pacemaker: No Hx Internal Defibrillator: No Hx Cholecystectomy: No Hx Appendectomy: No Hx Breast Surgery: No Additional Surgical History: X 2 "seizure surgery" (1 at and the 2nd @ 12) - Social History Smoking Status: Never Smoker Substance Use Type: None - Medications Home Medications: Home Medications Medication Instructions Recorded Confirmed Last Taken Type Ibuprofen [Motrin] 600 mg PO Q8H PRN #30 tablet 12/04/18 Unknown Rx Valacyclovir HCl [Valtrex] 1,000 mg PO QDAY 12/04/18 12/04/18 12/03/18 History levETIRAcetam [Keppra] 500 mg PO BID 12/04/18 12/04/18 12/03/18 History oxyCODONE /ACETAMINOPHEN [Percocet 1 tab PO Q6HR PRN #30 tablet 12/04/18 Unknown Rx 5/325] EPINEPHrine [Epipen] 0.3 mg IJ ONCE PRN #1 auto.injct 07/01/20 Unknown Rx Famotidine [Pepcid] 20 mg PO BID #6 tablet 07/01/20 Unknown Rx diphenhydrAMINE [Benadryl CAP] 25 mg PO Q8HR PRN #10 capsule 07/01/20 Unknown Rx predniSONE [Deltasone] 20 mg PO BID #6 tab 07/01/20 Unknown Rx Acetamin/Codeine 120-12Mg/5 ml 5 ml PO TID PRN 4 Days #60 ml 11/13/20 Unknown Rx [Tylenol/Codeine] Amoxicillin [Trimox CAP] 500 mg PO Q8H #21 capsule 11/13/20 Unknown Rx Nystas/Diphen/Xyl Visc/Mylanta 15 ml MM Q6H PRN #120 ml 11/13/20 Unknown Rx [Magic Mouthwash] predniSONE [Deltasone] 20 mg PO QDAY #5 tab 11/13/20 Unknown Rx DOXYCYCLINE Hyclate [Vibramycin 100 mg PO Q12HR #14 capsule 05/07/21 Unknown Rx CAP] metroNIDAZOLE [Flagyl] 2,000 mg PO ONCE #4 tab 05/07/21 Unknown Rx valACYclovir [Valtrex] 500 mg PO BID #6 tab 05/07/21 Unknown Rx ED Physical Exam - General Limitations: No Limitations General appearance: alert, in no apparent distress - Head Head exam: Present: atraumatic, normocephalic - Eye Eye exam: Present: normal appearance - ENT ENT exam: Present: mucous membranes moist - Neck Neck exam: Present: normal inspection - Respiratory Respiratory exam: Present: normal lung sounds bilaterally. Absent: respiratory distress - Cardiovascular Cardiovascular Exam: Present: regular rate, normal rhythm. Absent: systolic murmur, diastolic murmur, rubs, gallop - GI/Abdominal GI/Abdominal exam: Present: soft, normal bowel sounds - External exam: Present: lesions (Few lesions consistent with HSV) Speculum exam: Present: vaginal discharge (Clear-white) Bi-manual exam: Absent: cervical motion tendernes (Slip Tender Juliann RN) - Extremities Exam Extremities exam: Present: normal inspection - Back Exam Back exam: Present: normal inspection - Neurological Exam Neurological exam: Present: alert, oriented X3 - Psychiatric Psychiatric exam: Present: normal affect, normal mood - Skin Skin exam: Present: warm, dry, intact, normal color. Absent: rash ED Course Vital Signs 05/07/21 06:30 Temperature 98.6 F Pulse Rate 72 Respiratory 20 Rate Blood Pressure 105/46 [Right] O2 Sat by Pulse 100 Oximetry ED Medical Decision Making - Medical Decision Making Patient presents with vaginal pain and burning for the past couple days along with some dysuria and vaginal discharge. Abdominal exam is benign, pelvic exam chaperoned by Juliann CHACON shows a thin clear-white vaginal discharge as well as a few external lesions suggestive of HSV. Will empirically treat for chlamydia gonorrhea, treat for HSV. Given Rocephin, discharged on Valtrex and doxycycline. Urinalysis shows leukocyte esterase as well as few white blood cells, wet prep is positive for trichomonas. We will also placed on Flagyl as a one-time dose. 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 - Differential Diagnosis Vaginitis, UTI, STI Critical care attestation.: If time is entered above; I have spent that time in minutes in the direct care of this critically ill patient, excluding procedure time. ED Disposition Clinical Impression: Trichomoniasis, Dysuria, HSV (herpes simplex virus) anogenital infection Disposition: TO HOME OR SELFCARE Is pt being admited?: No Condition: Good Instructions: Genital Herpes, Trichomoniasis Prescriptions: metroNIDAZOLE [Flagyl] 2,000 mg PO ONCE #4 tab valACYclovir [Valtrex] 500 mg PO BID #6 tab DOXYCYCLINE Hyclate [Vibramycin CAP] 100 mg PO Q12HR #14 capsule Referrals: PRIMARY CARE, [Primary Care Provider] - 3-5 Days JASON BRYANT MD [Staff Physician] - 3-5 Days Time of Disposition: 08:33
[2021-05-07] MEDS ORDERED: LIDOCAINE-MPF (1%) 10 MG/1 ML VIAL 5 ML INFILTRATI ONE (08:16)
[2021-05-07 08:21] LABS: Bilirubin,Urine NEG (Negative); Blood,Urine NEG (Negative); Color,Urine Yellow (Yellow); Mucus,Urine FEW /HPF; Protein,Urine <15 mg/dL mg/dL (Negative)
[2021-05-07 08:25] LABS: HCG Qualitative,Urine Negative (Negative)
== END 2021-05-07 09:18 | disposition home or self-care (01) ==
LOC: ED 06:14
DX: A59.01 Trichomonal vulvovaginitis (principal); A60.00 Herpesviral infection of urogenital system, unspecified; R30.0 Dysuria; F31.9 Bipolar disorder, unspecified; Z86.69 Personal history of other diseases of the nervous system and sense organs; Z79.899 Other long term (current) drug therapy; Z91.013 Allergy to seafood; Z98.890 Other specified postprocedural states
CPT/HCPCS: 81001; 81025; 87086; 87210; 87591; 96372; 99284; J0696; 99283

== ENCOUNTER 2022-05-26 14:23 | Emergency (ER) | payer SELFPAY ==
--- NOTE | 2022-05-26 18:59 | Emergency Department Report ---
Upper Extremity - HPI Chief Complaint: Extremity Injury, Upper Stated Complaint: LT WRIST PAIN Upper Extremity: Left Wrist Occurred When: 2 Days (Left wrist pain and swelling x3 days.) Mechanism: Hyperextension Severity: moderate Symptoms: Yes Pain with Movement, Yes Swelling, No Deformity, No Limited Range of Movement, No Numbness, No Weakness, No Bruising/Ecchymosis, No Laceration or Abrasion Other History: Patient 32-year-old female who presents for left lateral wrist pain and swelling states she was playing and hyperextended her wrist while wrestling with family member. There is no abrasion laceration or bleeding. There is no obvious deformity. Patient denies paralysis or numbness. Pain described as 5/10 exacerbated by movement. Patient denies other injury there is no numbness ED Review of Systems ROS: Stated complaint: LT WRIST PAIN Other details as noted in HPI Constitutional: denies: chills, fever Eyes: denies: eye pain, eye discharge, vision change ENT: denies: ear pain, throat pain Respiratory: denies: cough, shortness of breath, wheezing Cardiovascular: denies: chest pain, palpitations Endocrine: no symptoms reported Gastrointestinal: denies: abdominal pain, nausea, diarrhea Genitourinary: denies: urgency, dysuria, discharge Musculoskeletal: joint swelling (Left wrist pain and swelling). denies: back pain, arthralgia Skin: denies: rash, lesions Neurological: denies: headache, weakness, paresthesias Psychiatric: denies: anxiety, depression Hematological/Lymphatic: denies: easy bleeding, easy bruising ED Past Medical Hx - Past Medical History Hx Hypertension: No Hx CVA: No Hx Heart Attack/AMI: No Hx Congestive Heart Failure: No Hx Diabetes: No Hx Deep Vein Thrombosis: No Hx Pulmonary Embolism: No Hx GERD: No Hx Liver Disease: No Hx Renal Disease: No Hx Sickle Cell Disease: No Hx Arthritis: No Hx Headaches / Migraines: No Hx Seizures: Yes (on meds last took keppra on 12/03/18) Hx Kidney Stones: No Hx Psychiatric Treatment: Yes (Bipolar) Hx Asthma: No Hx COPD: No Hx Tuberculosis: No Hx Dementia: No Hx HIV: No - Surgical History Hx Coronary Stent: No Hx Open Heart Surgery: No Hx Pacemaker: No Hx Internal Defibrillator: No Hx Cholecystectomy: No Hx Appendectomy: No Hx Breast Surgery: No Additional Surgical History: X 2 "seizure surgery" (1 at and the 2nd @ 12) - Social History Smoking Status: Never Smoker Substance Use Type: None - Medications Home Medications: Home Medications Medication Instructions Recorded Confirmed Last Taken Type Ibuprofen [Motrin] 600 mg PO Q8H PRN #30 tablet 12/04/18 Unknown Rx Valacyclovir HCl [Valtrex] 1,000 mg PO QDAY 12/04/18 12/04/18 12/03/18 History levETIRAcetam [Keppra] 500 mg PO BID 12/04/18 12/04/18 12/03/18 History oxyCODONE /ACETAMINOPHEN [Percocet 1 tab PO Q6HR PRN #30 tablet 12/04/18 Unknown Rx 5/325] EPINEPHrine [Epipen] 0.3 mg IJ ONCE PRN #1 auto.injct 07/01/20 Unknown Rx Famotidine [Pepcid] 20 mg PO BID #6 tablet 07/01/20 Unknown Rx diphenhydrAMINE [Benadryl CAP] 25 mg PO Q8HR PRN #10 capsule 07/01/20 Unknown Rx predniSONE [Deltasone] 20 mg PO BID #6 tab 07/01/20 Unknown Rx Acetamin/Codeine 120-12Mg/5 ml 5 ml PO TID PRN 4 Days #60 ml 11/13/20 Unknown Rx [Tylenol/Codeine] Amoxicillin [Trimox CAP] 500 mg PO Q8H #21 capsule 11/13/20 Unknown Rx Nystas/Diphen/Xyl Visc/Mylanta 15 ml MM Q6H PRN #120 ml 11/13/20 Unknown Rx [Magic Mouthwash] predniSONE [Deltasone] 20 mg PO QDAY #5 tab 11/13/20 Unknown Rx DOXYCYCLINE Hyclate [Vibramycin 100 mg PO Q12HR #14 capsule 05/07/21 Unknown Rx CAP] metroNIDAZOLE [Flagyl] 2,000 mg PO ONCE #4 tab 05/07/21 Unknown Rx valACYclovir [Valtrex] 500 mg PO BID #6 tab 05/07/21 Unknown Rx Naproxen [Naprosyn] 500 mg PO BID PRN #30 tablet 05/26/22 Unknown Rx Upper Extremity Exam - Exam General: Vital signs noted. No distress. Alert and acting appropriately. Head and Torso: No HEENT Abnormality, No Neck Tenderness, No Chest/Lungs Abnormality, No Abdominal Tenderness, No Back Tenderness Shoulder Exam: Yes Normal Range of Motion in Shoulder, No Shoulder Tenderness, No Clavicle Tenderness, No Shoulder Deformity, No AC Joint Tenderness Arm Exam: No Arm/Humerus Tenderness, No Arm Deformity Elbow: No Elbow Tenderness, No Normal Range of Motion in Elbow, No Elbow Deformity Forearm: Yes Forearm Tenderness, Yes Pain with Pronation, Yes Pain with Supination, No Forearm Deformity (Dorsal lateral left wrist tenderness mild) Wrist: Yes Normal ROM in Wrist, No Wrist Tenderness, No Wrist Deformity, No Snuffbox Tenderness, No Pain with Axial Thumb Compression Hand: Yes Normal ROM in Digit(s), No Hand Tenderness, No Hand Deformity, No Digit Tenderness, No Digit(s) Deformity, No Tendon Dysfunction CMS Exam: Yes Normal Distal Pulses, Yes Normal Capillary Refill, Yes Normal Distal Sensation, No Broken Skin ED Course Vital Signs 05/26/22 14:37 Temperature 98.8 F Pulse Rate 81 Respiratory 18 Rate Blood Pressure 107/51 [Left] O2 Sat by Pulse 99 Oximetry ED Medical Decision Making - Medical Decision Making Range of motion is intact and unrestricted. Distal pulses +2 bilateral CLOTH FRAMER less than 3 seconds bilateral no pain with simulated axial thumb loading no xiphoid tenderness. There is no crepitus no step-off. Messenger Copy are equal bilaterally. Likely wrist strain plan RICE therapy, NSAIDs, wrist exercises, follow-up with your doctor in 2 to 3 days. Patient verbalized agreement understanding of discharge plan. Patient DC'd home in stable condition at this time. Critical care attestation.: If time is entered above; I have spent that time in minutes in the direct care of this critically ill patient, excluding procedure time. ED Disposition Clinical Impression: Strain of wrist, left Qualifiers: Encounter type: initial encounter Qualified Code(s): S66.912A - Strain of unspecified muscle, fascia and tendon at wrist and hand level, left hand, initial encounter Disposition: HOME / SELF CARE / HOMELESS Is pt being admited?: No Does the pt Need Aspirin: No Condition: Stable Instructions: Wrist Sprain Rehab-SportsMed, Elastic Bandage and RICE Therapy Additional Instructions: Take medication as prescribed, wrist exercises as directed. Follow-up with your doctor in 2 to 3 days. Return to emergency department should symptoms worsen. Prescriptions: Naproxen [Naprosyn] 500 mg PO BID PRN #30 tablet PRN Reason: pain Referrals: LYNDSAY FELIPE MD [Staff Physician] - 3-5 Days Forms: Work/School Release Form(ED) Time of Disposition: 19:00
[2022-05-26] MEDS ORDERED: IBUPROFEN 800 MG TAB PO ONE (19:01)
[2022-05-26 19:59] VITALS: BP 116/62
== END 2022-05-26 19:58 | disposition home or self-care (01) ==
LOC: ED 14:23
DX: S66.912A Strain of unspecified muscle, fascia and tendon at wrist and hand level, left hand, initial encounter (principal); X58.XXXA Exposure to other specified factors, initial encounter; Y93.89 Activity, other specified; Y92.89 Other specified places as the place of occurrence of the external cause; Y99.8 Other external cause status
CPT/HCPCS: 99282

== ENCOUNTER 2022-06-22 06:00 | Emergency (ER) | payer SELFPAY ==
[2022-06-22] MEDS ORDERED: ONDANSETRON 4 MG ODT TAB PO ONE (09:15)
[2022-06-22 10:10] LABS: Color,Urine Straw (Yellow); HCG Qualitative,Urine Negative (Negative)
[2022-06-22 11:32] LABS: Hematocrit 33.5 % (30.3-42.9); Hemoglobin 11.2 gm/dl (10.1-14.3); Mean Corpuscular HGB Conc 34 % (30-34); Mean Corpuscular Volume 93 fl (79-97); Platelet Count 312 K/mm3 (140-440); Red Cell Distribution Width 13.1 % (13.2-15.2)
[2022-06-22 11:51] LABS: Alanine Aminotransferase 10 units/L (7-56); Albumin 4.1 g/dL (3.9-5); Blood Urea Nitrogen 10 mg/dL (7-17); Calcium 9.1 mg/dL (8.4-10.2); Hemolysis Index 3
--- NOTE | 2022-06-22 12:06 | Emergency Department Report ---
ED Abdominal Pain HPI - General Chief Complaint: Abdominal Pain Stated Complaint: ABDOMINAL PAIN/SICK Time Seen by Provider: 06/22/22 09:01 Source: patient, EMS Mode of arrival: Stretcher Limitations: No Limitations - History of Present Illness Initial Comments: 32-year-old black female with past medical history of seizures presents to the emergency department for evaluation of abdominal pain, back pain, and nausea and vomiting. She states that symptoms started yesterday. She denies fever, vaginal discharge, chest pain, dizziness, and diaphoresis. MD Complaint: abdominal pain -: Gradual, days(s) (2) Location: diffuse Radiation: none Severity scale (0 -10): 2 Quality: aching Consistency: intermittent Associated Symptoms: nausea, vomiting, dysuria. denies: diarrhea, fever, chills, hematemesis, hematochezia, melena, hematuria, anorexia, syncope - Related Data LMP (females 10-50): 3 weeks Home Medications Medication Instructions Recorded Confirmed Last Taken Valacyclovir HCl [Valtrex] 1,000 mg PO QDAY 12/04/18 12/04/18 12/03/18 levETIRAcetam [Keppra] 500 mg PO BID 12/04/18 12/04/18 12/03/18 Previous Rx's Medication Instructions Recorded Last Taken Type Ibuprofen [Motrin] 600 mg PO Q8H PRN #30 tablet 12/04/18 Unknown Rx oxyCODONE /ACETAMINOPHEN [Percocet 1 tab PO Q6HR PRN #30 tablet 12/04/18 Unknown Rx 5/325] EPINEPHrine [Epipen] 0.3 mg IJ ONCE PRN #1 auto.injct 07/01/20 Unknown Rx Famotidine [Pepcid] 20 mg PO BID #6 tablet 07/01/20 Unknown Rx diphenhydrAMINE [Benadryl CAP] 25 mg PO Q8HR PRN #10 capsule 07/01/20 Unknown Rx predniSONE [Deltasone] 20 mg PO BID #6 tab 07/01/20 Unknown Rx Acetamin/Codeine 120-12Mg/5 ml 5 ml PO TID PRN 4 Days #60 ml 11/13/20 Unknown Rx [Tylenol/Codeine] Amoxicillin [Trimox CAP] 500 mg PO Q8H #21 capsule 11/13/20 Unknown Rx Nystas/Diphen/Xyl Visc/Mylanta 15 ml MM Q6H PRN #120 ml 11/13/20 Unknown Rx [Magic Mouthwash] predniSONE [Deltasone] 20 mg PO QDAY #5 tab 11/13/20 Unknown Rx DOXYCYCLINE Hyclate [Vibramycin 100 mg PO Q12HR #14 capsule 05/07/21 Unknown Rx CAP] metroNIDAZOLE [Flagyl] 2,000 mg PO ONCE #4 tab 05/07/21 Unknown Rx valACYclovir [Valtrex] 500 mg PO BID #6 tab 05/07/21 Unknown Rx Naproxen [Naprosyn] 500 mg PO BID PRN #30 tablet 05/26/22 Unknown Rx Ondansetron [Zofran Odt] 4 mg PO Q8HR PRN #12 tab.rapdis 06/22/22 Unknown Rx Allergies Allergy/AdvReac Type Severity Reaction Status Date / Time shellfish derived Allergy Swelling Verified 05/07/21 08:29 seafood Allergy Intermediate Swelling Uncoded 05/07/21 08:28 ED Review of Systems ROS: Stated complaint: ABDOMINAL PAIN/SICK Other details as noted in HPI Comment: All other systems reviewed and negative Constitutional: denies: chills, fever ENT: denies: congestion Respiratory: denies: shortness of breath Cardiovascular: denies: chest pain, palpitations Gastrointestinal: abdominal pain, nausea, vomiting. denies: diarrhea, hematemesis, melena, hematochezia Genitourinary: dysuria. denies: urgency, frequency, hematuria, discharge Neurological: denies: headache, weakness ED Past Medical Hx - Past Medical History Hx Hypertension: No Hx CVA: No Hx Heart Attack/AMI: No Hx Congestive Heart Failure: No Hx Diabetes: No Hx Deep Vein Thrombosis: No Hx Pulmonary Embolism: No Hx GERD: No Hx Liver Disease: No Hx Renal Disease: No Hx Sickle Cell Disease: No Hx Arthritis: No Hx Headaches / Migraines: No Hx Seizures: Yes (on meds last took keppra on 12/03/18) Hx Kidney Stones: No Hx Psychiatric Treatment: Yes (Bipolar) Hx Asthma: No Hx COPD: No Hx Tuberculosis: No Hx Dementia: No Hx HIV: No - Surgical History Hx Coronary Stent: No Hx Open Heart Surgery: No Hx Pacemaker: No Hx Internal Defibrillator: No Hx Cholecystectomy: No Hx Appendectomy: No Hx Breast Surgery: No Additional Surgical History: X 2 "seizure surgery" (1 at and the 2nd @ 12) - Social History Smoking Status: Never Smoker Substance Use Type: None - Medications Home Medications: Home Medications Medication Instructions Recorded Confirmed Last Taken Type Ibuprofen [Motrin] 600 mg PO Q8H PRN #30 tablet 12/04/18 Unknown Rx Valacyclovir HCl [Valtrex] 1,000 mg PO QDAY 12/04/18 12/04/18 12/03/18 History levETIRAcetam [Keppra] 500 mg PO BID 12/04/18 12/04/18 12/03/18 History oxyCODONE /ACETAMINOPHEN [Percocet 1 tab PO Q6HR PRN #30 tablet 12/04/18 Unknown Rx 5/325] EPINEPHrine [Epipen] 0.3 mg IJ ONCE PRN #1 auto.injct 07/01/20 Unknown Rx Famotidine [Pepcid] 20 mg PO BID #6 tablet 07/01/20 Unknown Rx diphenhydrAMINE [Benadryl CAP] 25 mg PO Q8HR PRN #10 capsule 07/01/20 Unknown Rx predniSONE [Deltasone] 20 mg PO BID #6 tab 07/01/20 Unknown Rx Acetamin/Codeine 120-12Mg/5 ml 5 ml PO TID PRN 4 Days #60 ml 11/13/20 Unknown Rx [Tylenol/Codeine] Amoxicillin [Trimox CAP] 500 mg PO Q8H #21 capsule 11/13/20 Unknown Rx Nystas/Diphen/Xyl Visc/Mylanta 15 ml MM Q6H PRN #120 ml 11/13/20 Unknown Rx [Magic Mouthwash] predniSONE [Deltasone] 20 mg PO QDAY #5 tab 11/13/20 Unknown Rx DOXYCYCLINE Hyclate [Vibramycin 100 mg PO Q12HR #14 capsule 05/07/21 Unknown Rx CAP] metroNIDAZOLE [Flagyl] 2,000 mg PO ONCE #4 tab 05/07/21 Unknown Rx valACYclovir [Valtrex] 500 mg PO BID #6 tab 05/07/21 Unknown Rx Naproxen [Naprosyn] 500 mg PO BID PRN #30 tablet 05/26/22 Unknown Rx Ondansetron [Zofran Odt] 4 mg PO Q8HR PRN #12 tab.rapdis 06/22/22 Unknown Rx ED Physical Exam - General Limitations: No Limitations General appearance: alert, in no apparent distress - Head Head exam: Present: atraumatic, normocephalic - Eye Eye exam: Present: normal appearance. Absent: conjunctival injection - Neck Neck exam: Present: normal inspection. Absent: tenderness, lymphadenopathy - Respiratory Respiratory exam: Absent: respiratory distress, wheezes, rales, rhonchi, stridor, chest wall tenderness - Cardiovascular Cardiovascular Exam: Present: regular rate - GI/Abdominal GI/Abdominal exam: Present: soft, normal bowel sounds. Absent: distended, tenderness, guarding, rebound, rigid - Extremities Exam Extremities exam: Present: normal inspection, normal capillary refill. Absent: full ROM, pedal edema, joint swelling, calf tenderness - Back Exam Back exam: Present: normal inspection. Absent: CVA tenderness (R), CVA tenderness (L) - Neurological Exam Neurological exam: Present: alert, oriented X3, CN II-XII intact, normal gait - Psychiatric Psychiatric exam: Present: normal affect, normal mood - Skin Skin exam: Present: warm, dry, intact, normal color ED Course Vital Signs 06/22/22 06/22/22 06/22/22 06:13 07:59 12:22 Temperature 98.5 F 98.7 F 98 F Pulse Rate 63 70 89 Respiratory 16 14 16 Rate Blood Pressure 122/71 114/60 100/57 [Right] O2 Sat by Pulse 96 100 96 Oximetry - Reevaluation(s) Reevaluation #1: 06/22/22 12:03 Patient states that she feels much better. She denies abdominal pain and nausea at this time. ED Medical Decision Making - Lab Data Result diagrams: 06/22/22 10:24 06/22/22 10:24 - Medical Decision Making 32-year-old black female with past medical history of seizures presents to the emergency department for evaluation of abdominal pain, back pain, and nausea and vomiting. She states that symptoms started yesterday. She denies fever, vaginal discharge, chest pain, dizziness, and diaphoresis. Physical exam unremarkable. Work-up unremarkable. Symptoms resolved. Patient be discharged home with Zofran to use as needed and advised to follow-up with her primary care provider if no improvement or worsening symptoms. She is advised to return to the emergency department as needed. She verbalizes understanding of and agreement with plan of care. Critical care attestation.: If time is entered above; I have spent that time in minutes in the direct care of this critically ill patient, excluding procedure time. ED Disposition Clinical Impression: Abdominal pain Qualifiers: Abdominal location: generalized Qualified Code(s): R10.84 - Generalized abdominal pain Nausea & vomiting Qualifiers: Vomiting type: unspecified Qualified Code(s): R11.2 - Nausea with vomiting, unspecified Disposition: HOME / SELF CARE / HOMELESS Is pt being admited?: No Does the pt Need Aspirin: No Condition: Stable Instructions: Nausea and Vomiting, Adult, [id number], Abdominal Pain, Adult, [id number], Abdominal Pain (ED) Additional Instructions: Take medications as prescribed. Follow-up with your primary care provider if no improvement or worsening symptoms. Return to the emergency department as needed. Prescriptions: Ondansetron [Zofran Odt] 4 mg PO Q8HR PRN #12 tab.rapdis PRN Reason: Nausea And Vomiting Referrals: FERNANDO GRULLON MD [Staff Physician] - 3-5 Days Forms: Work/School Release Form(ED) Time of Disposition: 12:05
[2022-06-22 12:07] LABS: BUN/Creatinine Ratio 17
[2022-06-22 12:37] VITALS: BP 100/57
[2022-06-22 13:48] LABS: RBC,Urine < 1.0 /HPF (0.0-6.0)
[2022-06-22 13:49] LABS: Amorphous Crystals,Urine 3+; Mucus,Urine 2+ /HPF
[2022-06-22 13:50] LABS: Bacteria,Urine 3+ /HPF (Negative)
== END 2022-06-22 12:37 | disposition home or self-care (01) ==
LOC: ED 06:00
DX: R10.84 Generalized abdominal pain (principal); R11.2 Nausea with vomiting, unspecified; R30.0 Dysuria; F31.9 Bipolar disorder, unspecified; Z91.013 Allergy to seafood; Z79.899 Other long term (current) drug therapy
CPT/HCPCS: 36415; 80053; 81001; 81025; 83690; 85027; 87086; 99284; J3490; Q0162